=== PATIENT | male | born 1960 | race Caucasian/White ===

== ENCOUNTER 2025-02-09 18:47 | Emergency (ER) | payer MEDICARE, OTHER ==
[~2025-02-09] VITALS: Ht 182.9 cm; Wt 280.0 kg
[2025-02-09 18:52] VITALS: TEMP 98
[2025-02-09 19:21] LABS: BASOPHILS % (AUTO) 0 % (0-1); EOSINOPHILS # (AUTO) 0.1 X10'3 (0-0.9); HEMATOCRIT 45.6 % (42.0-52.0); HEMOGLOBIN 15.6 g/dl (14.0-17.9); LYMPHOCYTES # (AUTO) 0.6 X10'3 (1.1-4.8); LYMPHOCYTES % (AUTO) 5.3 % (21-51); MEAN CORPUSCULAR HGB CONC 34.3 g/dL (33.0-36.5); MEAN CORPUSCULAR VOLUME 87.5 FL (78-98); MONOCYTES # (AUTO) 0.3 X10'3 (0-0.9); MONOCYTES % (AUTO) 2.6 % (2-12); NEUTROPHILS % (AUTO) 91.1 % (42-75); PLATELET COUNT 291 X10'3 (140-440); RED BLOOD COUNT 5.21 X10'6 (4.70-6.10); RED CELL DISTRIBUTION WIDTH 13.4 % (11.5-14.5); WHITE BLOOD COUNT 12.1 X10'3 (4.5-11.0)
[2025-02-09 19:41] LABS: ALANINE AMINOTRANSFERASE 25 U/L (12-78); ALKALINE PHOSPHATASE 84 IU/L (46-116); ANION GAP 11 (8-16); ASPARTATE AMINO TRANSFERASE 19 U/L (10-37); BILIRUBIN,TOTAL 0.7 MG/DL (0.1-1.0); BLOOD UREA NITROGEN 19 MG/DL (7-18); CALCIUM 9.1 MG/DL (8.5-10.1); CHLORIDE 98 MMOL/L (99-107); CREATININE 0.95 MG/DL (0.60-1.10); GLUCOSE 126 MG/DL (70-104); LIPASE 20 U/L (16-77); POTASSIUM 3.6 MMOL/L (3.5-5.1); SODIUM 133 MMOL/L (135-145); TOTAL CARBON DIOXIDE 24.4 MMOL/L (24-32); TOTAL PROTEIN 8.1 G/DL (6.4-8.2); eCRCL 84 ML/MIN; eGFR 79 ML/MIN
[2025-02-09 20:58] LABS: BILIRUBIN,URINE NEGATIVE (Neg); CLARITY,URINE CLEAR (Clear); COLOR,URINE YELLOW (Yellow); GLUCOSE, URINE NEGATIVE (Neg); KETONES,URINE >=80 mg/dl (Neg); LEUKOCYTE ESTERASE ,URINE NEGATIVE (Neg); NITRITES, URINE NEGATIVE (Neg); OCCULT BLOOD,URINE NEGATIVE (Neg); PROTEIN,URINE 30 mg/dl (Neg); UROBILINOGEN,URINE 0.2 E.U/dL (0.2-1.0)
[2025-02-09 21:05] LABS: UA COLLECTION TYPE CLN CATCH MIDSTREAM
[2025-02-09 21:06] LABS: MUCUS STRANDS MODERATE /LPF (Neg); SQUAMOUS EPITHELIAL CELL,UR FEW /LPF (FEW)
[2025-02-09 21:07] LABS: BACTERIA,URINE FEW /HPF (Neg); HYALINE CASTS 0-3 /LPF (NEGATIVE); RBC,URINE NONE SEEN /HPF (0-2); WBC,URINE 0-4 /HPF (0-4)
[2025-02-09] MEDS: loperamide 2mg capsule PO STA (21:52)
[2025-02-09] MEDS: ondansetron/PF 4mg/2ml inj IV STA (21:54)
[2025-02-09] MEDS: normal saline 1000ml 1,000 ML IV STA ×2 (21:55)
[2025-02-09] MEDS ORDERED: LOPE-144 PO (23:03)
[2025-02-09] MEDS ORDERED: ONDA-243 PO (23:03)
[2025-02-09 23:18] VITALS: BP 150/80; PULSE 99; RESP 18; O2SAT 99
== END 2025-02-09 23:21 | disposition home or self-care (01) ==
LOC: ER 18:49
DX: K52.9 Noninfective gastroenteritis and colitis, unspecified (principal); T50.905A Adverse effect of unspecified drugs, medicaments and biological substances, initial encounter; Y92.89 Other specified places as the place of occurrence of the external cause
CPT/HCPCS: 36415; 80053; 81001; 83690; 85025; 96361; 96374; 99283; J2405; J7030